=== PATIENT | male | born 1960 | race Caucasian/White ===

== ENCOUNTER 2016-12-17 12:18 | Emergency (ER) | payer OTHER ==
[~2016-12-17] VITALS: Ht 175.3 cm; Wt 83.9 kg
[~2016-12-17 12:18] MED LIST: ASPIRIN81 M1 PO; DIFLUCAN100 MG PO; GLUCOPHAGE1000 MG PO; GLUCOPHAGE500 MG PO; GLUCOTROL XL10 M1 PO; IODOSORB 0.9% TP; KEFLEX250 MG PO; LOTENSIN20 MG PO; PRAVACHOL40 MG PO; ZESTRIL20 MG PO
[2016-12-17 12:42] VITALS: BP 142/85
--- NOTE | 2016-12-17 14:40 | NUR ---
PT STATES RIGHT BIG TOE PAIN FOR TWO DAYS . DENIES N/V/D; SKIN IS PINK/WARM/DRY; AAOX4 WITH EVEN AND STEADY GAIT; PT DENIES ANY FEVER, CP, SOB, OR COUGH AT THIS TIME; PATIENT STATES PAIN OF 7/10 AT THIS TIME; VSS. PT SITTING IN CHAIR.
[2016-12-17] MEDS ORDERED: ACETAMINOPHEN 325 MG TAB PO ONE (15:00)
[2016-12-17 15:52] VITALS: BP 121/70
--- NOTE | 2016-12-17 15:52 | NUR ---
Patient discharged with v/s stable. Written and verbal after care instructions given and explained. Patient alert, oriented and verbalized understanding of instructions. Ambulatory with steady gait. All questions addressed prior to discharge. ID band removed. Patient advised to follow up with PMD. Rx of ULTRAM given. Patient educated on indication of medication including possible reaction and side effects. Opportunity to ask questions provided and answered.
== END 2016-12-17 15:52 | disposition home or self-care (01) ==
LOC: MED 13:06
DX: S92.911G Unspecified fracture of right toe(s), subsequent encounter for fracture with delayed healing (principal); M19.071 Primary osteoarthritis, right ankle and foot; R03.0 Elevated blood-pressure reading, without diagnosis of hypertension; E11.9 Type 2 diabetes mellitus without complications; V68 Occupant of heavy transport vehicle injured in noncollision transport accident

== ENCOUNTER 2017-05-02 10:16 | Emergency (ER) | payer OTHER ==
[~2017-05-02] VITALS: Ht 167.6 cm; Wt 86.2 kg
[~2017-05-02 10:16] MED LIST changes: +ASPI81CT89 PO; -ASPIRIN81 M1 PO; +BENA20TA PO; +CEPH250C16 PO; -DIFLUCAN100 MG PO; +FLUC100T PO; +GLIP10TE PO; -GLUCOPHAGE1000 MG PO; -GLUCOPHAGE500 MG PO; -GLUCOTROL XL10 M1 PO; -IODOSORB 0.9% TP; -KEFLEX250 MG PO; +LISI-420 PO; -LOTENSIN20 MG PO; +METF1000 PO; +METF500T PO; +PRAV40TA1 PO; -PRAVACHOL40 MG PO; -ZESTRIL20 MG PO; +[UNRECOGNIZED DRUG - CODE] TP
[2017-05-02 10:22] VITALS: BP 169/106
[2017-05-02] MEDS ORDERED: methylPREDNISolone SS 40 MG in WATER STERILE 1 ML IM ONE (10:30)
[2017-05-02] MEDS ORDERED: diphenhydrAMINE 50 MG/ML VIAL IM ONE (10:30)
[2017-05-02] MEDS ORDERED: FAMOTIDINE 20 MG TAB PO ONE (10:30)
--- NOTE | 2017-05-02 10:30 | NUR ---
DR.NELSOR RED PT IN TRIAGE
--- NOTE | 2017-05-02 10:30 | NUR ---
PATIENT PRESENTS TO ED WITH BLE URTICARIA RASH . PT STATES . DENIES N/V/D;; AAOX4 WITH EVEN AND STEADY GAIT; LUNGS CLEAR BL; HR EVEN AND REGULAR; PT DENIES ANY FEVER, CP, SOB, OR COUGH AT THIS TIME; PATIENT STATES PAIN OF 0/10 AT THIS TIME; VSS; PATIENT POSITIONED FOR COMFORT; HOB ELEVATED; BEDRAILS UP X2; BED DOWN. ER MD MADE AWARE OF PT STATUS.
[2017-05-02 10:48] VITALS: BP 137/84
--- NOTE | 2017-05-02 10:48 | NUR ---
Patient discharged with v/s stable. Written and verbal after care instructions given and explained. Patient alert, oriented and verbalized understanding of instructions. Ambulatory with steady gait. All questions addressed prior to discharge. ID band removed. Patient advised to follow up with PMD. Rx of PREDNISONE/BENADRYL given. Patient educated on indication of medication including possible reaction and side effects. Opportunity to ask questions provided and answered.
== END 2017-05-02 10:48 | disposition home or self-care (01) ==
LOC: MED 10:16
DX: L50.9 Urticaria, unspecified (principal); L25.9 Unspecified contact dermatitis, unspecified cause; I10 Essential (primary) hypertension; F03.90 Unspecified dementia, unspecified severity, without behavioral disturbance, psychotic disturbance, mood disturbance, and anxiety; E11.9 Type 2 diabetes mellitus without complications; F32.9 Major depressive disorder, single episode, unspecified; E78.5 Hyperlipidemia, unspecified
CPT/HCPCS: 96372; 99284; J1200; J2920

== ENCOUNTER 2017-05-05 06:35 | Emergency (ER) | payer OTHER ==
[~2017-05-05] VITALS: Ht 175.3 cm; Wt 83.9 kg
[2017-05-05 06:42] VITALS: BP 163/99
--- NOTE | 2017-05-05 06:51 | NUR ---
PT TAKEN TO BED 4
--- NOTE | 2017-05-05 06:54 | NUR ---
56Y M BIB SELF C/O RIGHT GREAT TOE LAC OCCURRED TODAY WHILE WORKING. 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 PT STATES HE DID NOT SEE THE LAC UNTIL HE TOOK OFF HIS SHOES AND NOTICED HIS SOCK WAS COVERED IN BLOOD. PT MEDICAL HX OF DIABETES. BS 205 NOW. PT IS AAOX4. PT DENIES ANY N/V/D, SOB, CP AT THE MOMENT.
--- NOTE | 2017-05-05 06:59 | NUR ---
AMPUTATION OF 2 TOES NOTED ON RIGHT FOOT.
--- NOTE | 2017-05-05 07:10 | NUR ---
Pt report given to MAYTE DOMINGUEZ. Transfer of care at this time.
--- NOTE | 2017-05-05 07:10 | NUR ---
X-Ray at bedside.
[2017-05-05] MEDS ORDERED: LIDOCAINE 1% 500 MG/50 ML VIAL INJ ONE (07:45)
[2017-05-05] MEDS ORDERED: BACITRACIN OINT 500 UNITS/GM PKT TP ONE (07:45)
--- NOTE | 2017-05-05 08:00 | NUR ---
PT RESTYING ON BED;NO ACUTE DISTRESS NOTED;WILL CONTINUE TO MONITOR PT.
--- NOTE | 2017-05-05 08:49 | NUR ---
Patient discharged with v/s stable. Written and verbal after care instructions given and explained. Patient alert, oriented and verbalized understanding of instructions. Ambulatory with steady gait. All questions addressed prior to discharge. ID band removed. Patient advised to follow up with PMD. Rx of MOTRIN AND KEFLEX given. Patient educated on indication of medication including possible reaction and side effects. Opportunity to ask questions provided and answered.
[2017-05-05 08:50] VITALS: BP 152/88
== END 2017-05-05 08:48 | disposition home or self-care (01) ==
LOC: MED 06:35
DX: S91.111A Laceration without foreign body of right great toe without damage to nail, initial encounter (principal); E11.9 Type 2 diabetes mellitus without complications; I10 Essential (primary) hypertension; F03.90 Unspecified dementia, unspecified severity, without behavioral disturbance, psychotic disturbance, mood disturbance, and anxiety; Z89.429 Acquired absence of other toe(s), unspecified side; X58.XXXA Exposure to other specified factors, initial encounter; Y93.89 Activity, other specified; Y92.89 Other specified places as the place of occurrence of the external cause; Y99.8 Other external cause status
CPT/HCPCS: 12001; 73660; 90471; 90715; 99284; J2001; Q0092

== ENCOUNTER 2017-05-07 13:11 | Emergency (ER) | payer OTHER ==
[~2017-05-07] VITALS: Ht 175.3 cm; Wt 86.7 kg
[2017-05-07 13:36] VITALS: BP 154/89
--- NOTE | 2017-05-07 15:46 | NUR ---
PT PLACED IN OVERFLOW CHAIR.
--- NOTE | 2017-05-07 15:53 | NUR ---
56/M here for a recheck to sutures to right great toe. No drainage no redness noted. Pt denies pain. Pt states he was placed on pain medications and antibiotics. AOX4, ambulatory with steady gait. VSS.
--- NOTE | 2017-05-07 15:54 | NUR ---
Dressing removed. No drainage noted. Pt tolerated well. Blue lynda pad applied under foot.
--- NOTE | 2017-05-07 15:58 | NUR ---
Patient being evaluated by LAURA Do in overflow chair.
[2017-05-07 16:25] VITALS: BP 126/69
--- NOTE | 2017-05-07 16:25 | NUR ---
Patient discharged with v/s stable. Written and verbal after care instructions given and explained. Patient verbalized understanding. Ambulatory with steady gait. All questions addressed prior to discharge. Advised to follow up with PMD.
== END 2017-05-07 16:25 | disposition home or self-care (01) ==
LOC: MED 13:11
DX: S91.311D Laceration without foreign body, right foot, subsequent encounter (principal); E11.65 Type 2 diabetes mellitus with hyperglycemia; F03.90 Unspecified dementia, unspecified severity, without behavioral disturbance, psychotic disturbance, mood disturbance, and anxiety; I10 Essential (primary) hypertension; Z89.421 Acquired absence of other right toe(s); Z79.82 Long term (current) use of aspirin; Z79.899 Other long term (current) drug therapy; Z79.84 Long term (current) use of oral hypoglycemic drugs; X58.XXXD Exposure to other specified factors, subsequent encounter
CPT/HCPCS: 82948; 99283